=== PATIENT | male | born 1985 | race Caucasian/White ===

== ENCOUNTER 2017-08-04 19:10 | Emergency (ER) | payer SELFPAY ==
[~2017-08-04] VITALS: Ht 180.3 cm; Wt 81.7 kg
[~2017-08-04 19:10] MED LIST: ALBU90OI61; Atarax10 MG GT; Ativan0.5 MG PO; CALCIUM 500 +1 EAC2 PO; ESCI10 PO; FLUO10 PO; HYDACE5 PO; LISI5 PO; Omeprazole20 M1; Omeprazole20 M1 PO; Zantac150 MG PO
[2017-08-04] MEDS ORDERED: Bactrim Ds Tab1 EACH PO (21:37)
[2017-08-04] MEDS ORDERED: CEPH500 PO (21:37)
[2018-03-03] MEDS ORDERED: METO50ER PO (09:22)
[2018-04-14] MEDS ORDERED: Omeprazole20 M1 PO (12:51)
== END 2017-08-04 21:52 | disposition home or self-care (01) ==
LOC: ER 19:10
DX: L03.011 Cellulitis of right finger (principal); F41.9 Anxiety disorder, unspecified; F17.200 Nicotine dependence, unspecified, uncomplicated; Z88.0 Allergy status to penicillin; Z79.899 Other long term (current) drug therapy
CPT/HCPCS: 10061; 99283

== ENCOUNTER 2018-01-06 14:17 | Emergency (ER) | payer SELFPAY ==
[~2018-01-06] VITALS: Ht 180.3 cm; Wt 78.9 kg
[~2018-01-06 14:17] MED LIST changes: +Bactrim Ds Tab1 EACH PO; +CEPH500 PO
[2018-01-06 15:57] LABS: BASOPHILS ABSOLUTE AUTO 0.03 K/mm3 (0.00-0.23); BASOPHILS PERCENT AUTO 1 % (0-2); EOSINOPHILS ABSOLUTE AUTO 0.02 K/mm3 (0.00-0.68); EOSINOPHILS PERCENT AUTO 0 % (0-6); Hematocrit 38.9 % (37.0-53.0); Hemoglobin 13.1 g/dL (13.5-17.5); IMMATURE GRAN ABSOLUTE AUTO 0.01 K/mm3 (0.00-0.10); IMMATURE GRAN PERCENT AUTO 0 % (0-1); LYMPHOCYTES ABSOLUTE AUTO 1.11 K/mm3 (0.84-5.20); LYMPHOCYTES PERCENT AUTO 20 % (21-46); MONOCYTES ABSOLUTE AUTO 0.74 K/mm3 (0.16-1.47); MONOCYTES PERCENT AUTO 13 % (4-13); Mean Corpuscular HGB 32.6 pg (26.0-34.0); Mean Corpuscular HGB Conc 33.7 g/dL (31.5-36.5); Mean Corpuscular Volume 97 fL (80-100); Mean Platelet Volume 10.6 fL (9.1-12.4); NEUTROPHILS ABSOLUTE AUTO 3.64 K/mm3 (1.96-9.15); NEUTROPHILS PERCENT AUTO 66 % (41-73); Platelet Count 119 K/mm3 (150-400); RDW Coefficient Variation 13.8 % (11.7-14.2); RDW Standard Deviation 49.5 fL (35.1-46.3); Red Blood Cell Count 4.02 M/mm3 (4.30-5.90); White Blood Cell Count 5.55 K/mm3 (4.00-11.30)
[2018-01-06 16:13] LABS: Alanine Aminotransfer (ALT/SGP 98 U/L (12-78); Albumin, Blood 4.1 g/dL (3.4-5.0); Albumin/Globulin Ratio 1.3 (0.8-1.8); Alk Phos 77 U/L (50-136); Anion Gap 10 mmol/L (6-16); Aspartate Aminotrans (AST/SGOT 199 U/L (12-37); Bilirubin, Total 0.8 mg/dL (0.1-1.0); Blood Urea Nitrogen 16 mg/dL (8-24); Bun/Creatinine Ratio 20.9 (12.0-20.0); CO2, Blood 28 mmol/L (21-32); Calcium, Blood 8.6 mg/dL (8.5-10.1); Chloride, Blood 102 mmol/L (98-108); Creatinine, Blood 0.77 mg/dL (0.60-1.20); Ethanol (Alcohol), Blood, Med <3 mg/dL; Globulin, Blood 3.1 g/dL (2.2-4.0); Glomerular Filtration Rate >60 (60-); Glucose, Blood 77 mg/dL (70-99); Magnesium, Blood 1.4 mg/dL (1.6-2.4); Sodium, Blood 140 mmol/L (136-145); Total Protein, Blood 7.2 g/dL (6.4-8.2)
[2018-01-06] MEDS ORDERED: K-Dur 20 meq T20 MEQ PO (16:52)
[2018-01-06] MEDS ORDERED: MAGOXI400 PO (16:52)
== END 2018-01-06 19:04 | disposition home or self-care (01) ==
LOC: ER 14:17
PROVIDERS: Emergency Medicine
DX: F10.239 Alcohol dependence with withdrawal, unspecified (principal); E87.6 Hypokalemia; E83.42 Hypomagnesemia; Y90.0 Blood alcohol level of less than 20 mg/100 ml; Z88.0 Allergy status to penicillin; Z79.899 Other long term (current) drug therapy; Z79.2 Long term (current) use of antibiotics; F41.9 Anxiety disorder, unspecified; I10 Essential (primary) hypertension; F17.210 Nicotine dependence, cigarettes, uncomplicated
CPT/HCPCS: 36415; 80053; 83690; 83735; 85025; 96365; 96366; 96367; 96375; 99283; G0480; J3411; J3475; J3490; J7120

== ENCOUNTER 2018-03-03 08:47 | Emergency (ER) | payer MEDICAID ==
[~2018-03-03] VITALS: Ht 180.3 cm; Wt 79.4 kg
[~2018-03-03 08:47] MED LIST changes: +K-Dur 20 meq T20 MEQ PO; +MAGOXI400 PO
[2018-03-03] MEDS ORDERED: METO25ER PO (09:22)
[2018-03-03] MEDS ORDERED: HYDPAM25 PO (09:23)
[2018-03-03 09:45] LABS: BASOPHILS ABSOLUTE AUTO 0.02 K/mm3 (0.00-0.23); BASOPHILS PERCENT AUTO 0 % (0-2); EOSINOPHILS ABSOLUTE AUTO 0.01 K/mm3 (0.00-0.68); EOSINOPHILS PERCENT AUTO 0 % (0-6); Hematocrit 42.4 % (37.0-53.0); Hemoglobin 14.5 g/dL (13.5-17.5); IMMATURE GRAN ABSOLUTE AUTO 0.01 K/mm3 (0.00-0.10); IMMATURE GRAN PERCENT AUTO 0 % (0-1); LYMPHOCYTES ABSOLUTE AUTO 2.13 K/mm3 (0.84-5.20); LYMPHOCYTES PERCENT AUTO 23 % (21-46); MONOCYTES ABSOLUTE AUTO 0.51 K/mm3 (0.16-1.47); MONOCYTES PERCENT AUTO 5 % (4-13); Mean Corpuscular HGB 31.3 pg (26.0-34.0); Mean Corpuscular HGB Conc 34.2 g/dL (31.5-36.5); Mean Corpuscular Volume 92 fL (80-100); Mean Platelet Volume 9.9 fL (9.1-12.4); NEUTROPHILS ABSOLUTE AUTO 6.71 K/mm3 (1.96-9.15); NEUTROPHILS PERCENT AUTO 72 % (41-73); Platelet Count 212 K/mm3 (150-400); RDW Coefficient Variation 14.6 % (11.7-14.2); Red Blood Cell Count 4.63 M/mm3 (4.30-5.90); White Blood Cell Count 9.39 K/mm3 (4.00-11.30)
[2018-03-03 10:00] LABS: Troponin I <0.015 ng/mL (0.000-0.040)
[2018-03-03 10:01] LABS: Alanine Aminotransfer (ALT/SGP 19 U/L (12-78); Albumin/Globulin Ratio 1.2 (0.8-1.8); Alk Phos 69 U/L (50-136); Anion Gap 9 mmol/L (6-16); Aspartate Aminotrans (AST/SGOT 55 U/L (12-37); Bilirubin, Total 0.7 mg/dL (0.1-1.0); Blood Urea Nitrogen 12 mg/dL (8-24); Bun/Creatinine Ratio 17.9 (12.0-20.0); CO2, Blood 25 mmol/L (21-32); Chloride, Blood 106 mmol/L (98-108); Creatinine, Blood 0.67 mg/dL (0.60-1.20); Globulin, Blood 3.4 g/dL (2.2-4.0); Glomerular Filtration Rate >60 (60-); Glucose, Blood 99 mg/dL (70-99); Potassium, Blood 3.8 mmol/L (3.5-5.5); Sodium, Blood 140 mmol/L (136-145); Total Protein, Blood 7.4 g/dL (6.4-8.2)
== END 2018-03-03 12:09 | disposition home or self-care (01) ==
LOC: ER 08:47
PROVIDERS: Emergency Medicine
DX: R07.89 Other chest pain (principal); R00.2 Palpitations; F41.9 Anxiety disorder, unspecified; F17.210 Nicotine dependence, cigarettes, uncomplicated; I45.6 Pre-excitation syndrome; Z88.0 Allergy status to penicillin; Z79.899 Other long term (current) drug therapy; I10 Essential (primary) hypertension
CPT/HCPCS: 36415; 71046; 80053; 83880; 84484; 85025; 93005; 93010; 99285-25

== ENCOUNTER 2018-04-15 07:41 | Day surgery (SDC) | payer OTHER ==
[~2018-04-15] VITALS: Ht 180.3 cm; Wt 79.0 kg
[~2018-04-15 07:41] MED LIST changes: +HYDPAM25 PO; +METO50ER PO
[2018-04-15] MEDS ORDERED: LISI5 (08:12)
== END 2018-04-15 14:25 | disposition home or self-care (01) ==
LOC: MHTC 07:41
DX: I47.1 Supraventricular tachycardia (principal); R06.00 Dyspnea, unspecified; I25.41 Coronary artery aneurysm; I11.0 Hypertensive heart disease with heart failure; I50.9 Heart failure, unspecified; J45.909 Unspecified asthma, uncomplicated; F17.210 Nicotine dependence, cigarettes, uncomplicated; Z82.49 Family history of ischemic heart disease and other diseases of the circulatory system
CPT/HCPCS: 93460; 99152; C1769; C1894; J1644; J2250; J2405; J3010; J7030; J7040; Q9967

== ENCOUNTER 2018-07-11 10:36 | Emergency (ER) | payer OTHER ==
[~2018-07-11] VITALS: Ht 180.3 cm; Wt 88.5 kg
[~2018-07-11 10:36] MED LIST changes: -HYDPAM25 PO; +HYDPAM50 PO; +Prinivil10 MG PO
[2018-07-11 11:29] LABS: BASOPHILS ABSOLUTE AUTO 0.04 K/mm3 (0.00-0.23); BASOPHILS PERCENT AUTO 1 % (0-2); EOSINOPHILS ABSOLUTE AUTO 0.06 K/mm3 (0.00-0.68); EOSINOPHILS PERCENT AUTO 1 % (0-6); Hematocrit 32.9 % (37.0-53.0); Hemoglobin 10.4 g/dL (13.5-17.5); IMMATURE GRAN ABSOLUTE AUTO 0.03 K/mm3 (0.00-0.10); IMMATURE GRAN PERCENT AUTO 1 % (0-1); LYMPHOCYTES ABSOLUTE AUTO 1.98 K/mm3 (0.84-5.20); LYMPHOCYTES PERCENT AUTO 33 % (21-46); MONOCYTES ABSOLUTE AUTO 0.73 K/mm3 (0.16-1.47); MONOCYTES PERCENT AUTO 12 % (4-13); Mean Corpuscular HGB 32.8 pg (26.0-34.0); Mean Corpuscular HGB Conc 31.6 g/dL (31.5-36.5); Mean Corpuscular Volume 104 fL (80-100); Mean Platelet Volume 10.1 fL (9.1-12.4); NEUTROPHILS ABSOLUTE AUTO 3.25 K/mm3 (1.96-9.15); NEUTROPHILS PERCENT AUTO 53 % (41-73); Platelet Count 294 K/mm3 (150-400); RDW Coefficient Variation 16.8 % (11.7-14.2); RDW Standard Deviation 63.8 fL (35.1-46.3); Red Blood Cell Count 3.17 M/mm3 (4.30-5.90); White Blood Cell Count 6.09 K/mm3 (4.00-11.30)
[2018-07-11 11:44] LABS: Alanine Aminotransfer (ALT/SGP 73 U/L (12-78); Albumin, Blood 3.2 g/dL (3.4-5.0); Albumin/Globulin Ratio 0.9 (0.8-1.8); Alk Phos 59 U/L (50-136); Anion Gap 8 mmol/L (6-16); Aspartate Aminotrans (AST/SGOT 148 U/L (12-37); Bilirubin, Total 0.3 mg/dL (0.1-1.0); Blood Urea Nitrogen 9 mg/dL (8-24); Bun/Creatinine Ratio 14.2 (12.0-20.0); CO2, Blood 27 mmol/L (21-32); Calcium, Blood 6.8 mg/dL (8.5-10.1); Chloride, Blood 108 mmol/L (98-108); Creatinine, Blood 0.63 mg/dL (0.60-1.20); Globulin, Blood 3.4 g/dL (2.2-4.0); Glomerular Filtration Rate >60 (60-); Glucose, Blood 92 mg/dL (70-99); Potassium, Blood 3.2 mmol/L (3.5-5.5); Sodium, Blood 143 mmol/L (136-145); Total Protein, Blood 6.6 g/dL (6.4-8.2); Troponin I <0.015 ng/mL (0.000-0.040)
[2018-07-11] MEDS ORDERED: PROM25 PO (12:20)
[2018-07-11] MEDS ORDERED: DIPATRL (12:21)
== END 2018-07-11 13:56 | disposition home or self-care (01) ==
LOC: ER 10:36
PROVIDERS: Physician Assistant
DX: I42.6 Alcoholic cardiomyopathy (principal); G24.9 Dystonia, unspecified; F41.9 Anxiety disorder, unspecified; F17.200 Nicotine dependence, unspecified, uncomplicated; Z88.2 Allergy status to sulfonamides; Z91.09 Other allergy status, other than to drugs and biological substances; Z79.899 Other long term (current) drug therapy
CPT/HCPCS: 36415; 71046; 80053; 83880; 84484; 85025; 93005; 93010; 99285-25

== ENCOUNTER 2018-08-21 14:34 | Inpatient (IN) | payer OTHER ==
[~2018-08-21] VITALS: Ht 180.3 cm; Wt 89.0 kg
[~2018-08-21 14:34] MED LIST changes: +DIPATRL; +PROM25 PO
[2018-08-21 15:15] LABS: Calcium, Ionized (POC) 0.97 mmol/L (1.10-1.46); Chloride (POC) 99 mmol/L (98-108); Creatinine (POC) 0.9 mg/dL (0.8-1.3); Glucose (ISTAT POC) 94 mg/dL (70-99); Hemoglobin (POC) 17.3 g/dL (13.5-17.5); Potassium (POC) 3.8 mmol/L (3.5-5.5); Sodium (POC) 138 mmol/L (135-148); Total CO2 (POC) 22 mmol/L (21-32)
[2018-08-21 15:16] LABS: BASOPHILS ABSOLUTE AUTO 0.03 K/mm3 (0.00-0.23); BASOPHILS PERCENT AUTO 0 % (0-2); EOSINOPHILS PERCENT AUTO 0 % (0-6); Hematocrit 47.1 % (37.0-53.0); Hemoglobin 15.9 g/dL (13.5-17.5); IMMATURE GRAN ABSOLUTE AUTO 0.06 K/mm3 (0.00-0.10); IMMATURE GRAN PERCENT AUTO 0 % (0-1); LYMPHOCYTES ABSOLUTE AUTO 2.16 K/mm3 (0.84-5.20); LYMPHOCYTES PERCENT AUTO 16 % (21-46); MONOCYTES ABSOLUTE AUTO 0.59 K/mm3 (0.16-1.47); MONOCYTES PERCENT AUTO 4 % (4-13); Mean Corpuscular HGB 31.6 pg (26.0-34.0); Mean Corpuscular HGB Conc 33.8 g/dL (31.5-36.5); Mean Corpuscular Volume 94 fL (80-100); Mean Platelet Volume 10.2 fL (9.1-12.4); NEUTROPHILS ABSOLUTE AUTO 10.53 K/mm3 (1.96-9.15); NEUTROPHILS PERCENT AUTO 79 % (41-73); Platelet Count 328 K/mm3 (150-400); RDW Coefficient Variation 13.5 % (11.7-14.2); RDW Standard Deviation 46.6 fL (35.1-46.3); Red Blood Cell Count 5.03 M/mm3 (4.30-5.90); White Blood Cell Count 13.37 K/mm3 (4.00-11.30)
[2018-08-21 15:31] LABS: Alanine Aminotransfer (ALT/SGP 40 U/L (12-78); Albumin, Blood 4.6 g/dL (3.4-5.0); Albumin/Globulin Ratio 1.2 (0.8-1.8); Alk Phos 82 U/L (50-136); Anion Gap 21 mmol/L (6-16); Aspartate Aminotrans (AST/SGOT 66 U/L (12-37); Bilirubin, Total 0.5 mg/dL (0.1-1.0); Blood Urea Nitrogen 15 mg/dL (8-24); Bun/Creatinine Ratio 16.9 (12.0-20.0); CO2, Blood 20 mmol/L (21-32); Calcium, Blood 9.1 mg/dL (8.5-10.1); Chloride, Blood 98 mmol/L (98-108); Creatinine, Blood 0.89 mg/dL (0.60-1.20); Globulin, Blood 3.7 g/dL (2.2-4.0); Glomerular Filtration Rate >60 (60-); Glucose, Blood 90 mg/dL (70-99); Magnesium, Blood 1.5 mg/dL (1.6-2.4); Potassium, Blood 3.9 mmol/L (3.5-5.5); Sodium, Blood 139 mmol/L (136-145); Total Protein, Blood 8.3 g/dL (6.4-8.2); Troponin I <0.015 ng/mL (0.000-0.040)
[2018-08-21] MEDS ORDERED: POTASSIUM99 MG PO (16:00)
--- NOTE | 2018-08-21 19:12 | NUR ---
PT NEW ADMIT TO ICU. HR IN 130S-140S UPON ARRIVAL. DENIES CHEST PAIN, STATES HE FEELS NAUSEATED. VISIBLE TREMORS NOTED. PHARMACY ADVISED PROCAINAMIDE AT 20MLS/HR. OCTREOTIDE GTT RUNNING AT Y SITE WITH IT. LACTATED RINGERS RUNNING AT OPPOSITE IV SITE. PT'S MOTHER AT BEDSIDE. PT GIVEN ICE CHIPS PER ORDERS AND REQUEST.
--- NOTE | 2018-08-21 19:41 | NUR ---
REVIEWED CIWA WITH MARIANNE DESAI DURING REPORT. REVIEWED ORDERS AND MEDS STILL NEEDED WITH NIGHT RN. LANDSCAPE ARCHITECT AND PLANNER STARTED NEW IV SITE WHILE NIGHT AND DAY NURSES IN REPORT
[2018-08-21 20:44] LABS: Source, Urine Clean Catch
[2018-08-21 20:48] LABS: Bilirubin, Urine Neg (Neg); Blood, Urine 1+ (Neg); Glucose Qualitative, Urine Neg (Neg); Ketones, Urine 4+ (Neg); Leukocyte Esterase, Urine Neg (Neg); Nitrite, Urine Neg (Neg); Protein, Urine 3+ (Neg); Specific Gravity, Urine 1.025 (1.003-1.022); Urobilinogen, Urine NORM (Normal)
[2018-08-21 20:58] LABS: Appearance, Urine Clear (Clear); Color, Urine Yellow (P-Yellow)
[2018-08-21 20:59] LABS: Amorphous Light ({null, 0-Heavy}); Bacteria Not Seen /hpf; Hyaline Casts 0-2 /lpf (0-2); Mucus Light ({null, 0-Heavy}); Red Blood Cells, Urine Rare /hpf (0-2); Squamous Epithelial Cells Not Seen /hpf (Few); White Blood Cells, Urine Not Seen /hpf (0-5)
[2018-08-21 21:04] LABS: U Amphetamine Screen DETECTED; U Barbituate Screen Not Detected; U Benzodiazapine Screen Not Detected; U Buprenorphine Screen Not Detected; U Cannabinoids Screen Not Detected; U Cocaine Screen Not Detected; U Methadone Screen Not Detected; U Methamphetamine Screen DETECTED; U Opiates Screen Not Detected; U Oxycodone Screen Not Detected; U Phencyclidine Screen Not Detected; U Propoxyphene Screen Not Detected
[2018-08-21 22:02] LABS: Hematocrit 41.1 % (37.0-53.0); Hemoglobin 13.5 g/dL (13.5-17.5)
--- NOTE | 2018-08-21 23:13 | NUR ---
ASSUMED CARE OF PT AT 1900. PT ALERT AND SITTING UP IN BED COMPLAINING OF ABDOMINAL PAIN AND NAUSEA. UPPER/LOWER LEFT QUADRANT TENDER UPON PALPATION. PT HAS NOTICEABLE TREMORS, FIRST THOUGHT TO BE RELATED TO ALCOHOL W/D BUT PT STATES THIS IS BASELINE FOR HIM AND GETS WORSE WHEN HE ISN'T FEELING WELL. PT STATES THAT HE USED TO DRINK 1/5TH OF VODKA BUT HAS BEEN SOBER SINCE May, MOTHER CONFIRMS THIS. PT STATES THAT SATURDAY WAS THE FIRST TIME HE HAS DRANK SINCE THAT TIME AND HE DRANK 6 SHOTS OF VODKA. CIWA PROTOCOL WAS ORDERED. ATIVAN DC'D DUE TO PT'S REPORT OF ADVERSE REACTION (HALLUCINATIONS, NEW ONSET TICS). FOR THE PAST 2 DAYS PT HAS HAD NAUSEA AND VOMITING AND TODAY HE STATES HE STARTED VOMITING COFFEE GROUNDS AND HAS HAD ABDOMINAL PAIN. 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 PT STATES THAT HE IS UNABLE TO HAVE ADDITIONAL INTERVENTION UNTIL HE STOPS SMOKING. PT WAS GIVEN ADENOSINE AND PLACED ON A CARDIZEM DRIP. PER DR ALBERTS PT PLACED ON PROCAINIMIDE AND BROUGHT TO ICU. SEE FULL SHIFT ASSESSMENT.
[2018-08-22 03:34] LABS: BASOPHILS ABSOLUTE AUTO 0.03 K/mm3 (0.00-0.23); BASOPHILS PERCENT AUTO 0 % (0-2); EOSINOPHILS PERCENT AUTO 0 % (0-6); Hematocrit 38.8 % (37.0-53.0); Hemoglobin 12.5 g/dL (13.5-17.5); IMMATURE GRAN ABSOLUTE AUTO 0.01 K/mm3 (0.00-0.10); IMMATURE GRAN PERCENT AUTO 0 % (0-1); LYMPHOCYTES ABSOLUTE AUTO 2.61 K/mm3 (0.84-5.20); LYMPHOCYTES PERCENT AUTO 29 % (21-46); MONOCYTES ABSOLUTE AUTO 0.91 K/mm3 (0.16-1.47); MONOCYTES PERCENT AUTO 10 % (4-13); Mean Corpuscular HGB 31.6 pg (26.0-34.0); Mean Corpuscular HGB Conc 32.2 g/dL (31.5-36.5); Mean Platelet Volume 10.1 fL (9.1-12.4); NEUTROPHILS ABSOLUTE AUTO 5.33 K/mm3 (1.96-9.15); NEUTROPHILS PERCENT AUTO 60 % (41-73); Platelet Count 229 K/mm3 (150-400); RDW Coefficient Variation 13.5 % (11.7-14.2); RDW Standard Deviation 48.9 fL (35.1-46.3); Red Blood Cell Count 3.96 M/mm3 (4.30-5.90); White Blood Cell Count 8.89 K/mm3 (4.00-11.30)
[2018-08-22 03:35] LABS: Mean Corpuscular Volume 98 fL (80-100)
[2018-08-22 03:48] LABS: Anion Gap 12 mmol/L (6-16); Blood Urea Nitrogen 11 mg/dL (8-24); Bun/Creatinine Ratio 12.4 (12.0-20.0); CO2, Blood 25 mmol/L (21-32); Calcium, Blood 8.3 mg/dL (8.5-10.1); Chloride, Blood 100 mmol/L (98-108); Creatinine, Blood 0.89 mg/dL (0.60-1.20); Glomerular Filtration Rate >60 (60-); Glucose, Blood 94 mg/dL (70-99); Potassium, Blood 4.7 mmol/L (3.5-5.5); Sodium, Blood 137 mmol/L (136-145)
--- NOTE | 2018-08-22 05:54 | NUR ---
SHIFT SUMMARY PROCAINAMIDE PLACED ON STANDBY AT 0500. PT'S HR HAS CONSISTENTLY REMAINED BETWEEN 80-100. PT CURRENTLY IN NSR. PT HAS BEEN MEDICATED FOR LUQ/LLQ PAIN X2. PT DENIES PAIN CURRENTLY. PT HAD NAUSEA UPON ADMISSION BUT NO FURTHER BOUTS OF NAUSEA AND NO VOMITING. PT HAS TOLERATED CLEAR LIQUID DIET. PT DENIES USE OF METH/AMPH DESPITE POS TOX SCREEN. PT SLEPT THROUGHOUT NIGHT AND HAS NOT ATTEMPTED TO AMBULATE. USING URINAL WITH 250 DARK YELLOW URINARY OUTPUT. WILL REPORT TO DAYSHIFT NURSE.
--- NOTE | 2018-08-22 08:01 | NUR ---
0730-ASSUMED CARE OF PT. PT IS ALERT AND ORIENTED. DENIES PAIN AT THIS TIME. PT IS ON NSR. PT HAS PROTONIX AND SANDOSTATIN DRIP. EXPLAINED TO PATIENT AND MOTHER REGARDING ALCOHOL WITHDRAWAL, GI BLEED, INFO REGARDING ENDOSCOPY.
--- NOTE | 2018-08-22 12:19 | NUR ---
INOT ICU 7 TO PRE OP PATIENT. VSS
--- NOTE | 2018-08-22 12:30 | NUR ---
DR. MOTA AT BEDSIDE. GI TEAM AT [facility] PREPPING PATIENT FOR EGD.
--- NOTE | 2018-08-22 12:35 | NUR ---
08/22/18 1235 Ian Maza Bite Block Placed3-LEAD EKG REVIEWED WITH PHYSICIAN PRIOR TO START OF PROCEDURE.History, Chart, Medications and Allergies reviewed before start of procedure.MONITOR INTACT WITH CONTINUOUS PULSE OXIMETRY AND INTERMITTENT BP.O2 VIA N/C INTACT THROUGHOUT SEDATION/PROCEDURE. PATIENT DETERMINED TO BE ASA APPROPRIATE FOR PROPOFOL SEDATION PRIOR TO START OF PROCEDURE BY
--- NOTE | 2018-08-22 13:26 | NUR ---
PT IS SLEEPING SOUNDLY AT THIS TIME. EGD WAS DONE. OPENS EYES TO VOICE. FOLLOWING COMMANDS. DISCONTINUED PROTONIX AND SANDOSTATIN DRIP ORDERED BY DR. MOTA. DR. NEVAREZ SAT. WAS NOTIFIED REGARDING EGD AND PT' CONDITION. CARE STATUS WAS CHANGED TO MEDICAL WITH TELEMETRY. PT IS KEPT NPO FOR ABDOMINAL ULTRASOUND.
--- NOTE | 2018-08-22 15:15 | NUR ---
pt will be transferred to room 362. report given to MARIANNE Rivera in medical floor.
--- NOTE | 2018-08-22 15:26 | NUR ---
PT TRANSFERED TO ROOM 362 AT THIS TIME.
--- NOTE | 2018-08-22 16:14 | NUR ---
PT TRANSFERED PT TRANSFERED AT 1530. PT IN STABLE CONDITION. TELE APPLIED. SINUS NIRMAL WITH PACS AT 48. OT ORIENTED TO UNIT. CALL LIGHT IN REACH. DENIES PAIN MED NEEDS AT THIS TIME.
--- NOTE | 2018-08-22 17:52 | NUR ---
SHIFT SUMMARY PT IN STABLE CONDITION. PT HAS SLIGHT TEMP OF 99.3 & ELEVATED BP OF 160/88. METOPEROL SCHEDULED FOR THIS EVENING. RATE AT SINUS NIRMAL WITH PACS AT 48BPM. PT HAS MAINTAINED IN THE 40-50S FOR HEARTRATE THIS STAY. WILL CONTINUE TO MONITOR. OTHER VITALS STABLE. FAMILY AT BEDSIDE & PT UP ON BEDSIDE EATING DINNER. PT DENIES NAUSEA AND DENIES NEEDS FOR PAIN MEDICATION. PT STATES HE HAS NOT HAD A BM SINCE BEING ADMITTED AND HAS NOT OBSERVED BLEEDING. WILL CONTINUE TO MONITOR UNTIL TURNOVER IS COMPLETE.
--- NOTE | 2018-08-22 18:43 | NUR ---
PT BECAME NAUSEATED. PT BECAME NAUSEATED AFTER EATING SOME DINNER. PT STATED HE DRY HEAVED AND THEN NEEDED TO USE THE RESTROOM FOR A BM. PT STATED BM WAS LIGHT BROWN AND FORMED. NO VISIBLE BLOOD IN STOOL. PT ALSO MEDICATED FOR PAIN AT THIS TIME.
[2018-08-23 05:26] LABS: BASOPHILS ABSOLUTE AUTO 0.02 K/mm3 (0.00-0.23); BASOPHILS PERCENT AUTO 0 % (0-2); EOSINOPHILS ABSOLUTE AUTO 0.02 K/mm3 (0.00-0.68); EOSINOPHILS PERCENT AUTO 0 % (0-6); Hematocrit 39.1 % (37.0-53.0); Hemoglobin 12.7 g/dL (13.5-17.5); IMMATURE GRAN ABSOLUTE AUTO 0.02 K/mm3 (0.00-0.10); IMMATURE GRAN PERCENT AUTO 0 % (0-1); LYMPHOCYTES ABSOLUTE AUTO 2.34 K/mm3 (0.84-5.20); LYMPHOCYTES PERCENT AUTO 37 % (21-46); MONOCYTES ABSOLUTE AUTO 0.47 K/mm3 (0.16-1.47); MONOCYTES PERCENT AUTO 7 % (4-13); Mean Corpuscular HGB 31.7 pg (26.0-34.0); Mean Corpuscular HGB Conc 32.5 g/dL (31.5-36.5); Mean Corpuscular Volume 98 fL (80-100); Mean Platelet Volume 10.6 fL (9.1-12.4); NEUTROPHILS ABSOLUTE AUTO 3.54 K/mm3 (1.96-9.15); NEUTROPHILS PERCENT AUTO 55 % (41-73); Platelet Count 167 K/mm3 (150-400); RDW Coefficient Variation 13.2 % (11.7-14.2); Red Blood Cell Count 4.01 M/mm3 (4.30-5.90); White Blood Cell Count 6.41 K/mm3 (4.00-11.30)
[2018-08-23 05:54] LABS: Albumin, Blood 3.4 g/dL (3.4-5.0); Anion Gap 9 mmol/L (6-16); Blood Urea Nitrogen 5 mg/dL (8-24); Bun/Creatinine Ratio 5.8 (12.0-20.0); CO2, Blood 29 mmol/L (21-32); Chloride, Blood 101 mmol/L (98-108); Creatinine, Blood 0.86 mg/dL (0.60-1.20); Glomerular Filtration Rate >60 (60-); Glucose, Blood 77 mg/dL (70-99); Phosphorus, Blood 2.3 mg/dL (2.5-4.9); Potassium, Blood 3.6 mmol/L (3.5-5.5); Sodium, Blood 139 mmol/L (136-145)
--- NOTE | 2018-08-23 07:32 | NUR ---
a+o, denies pain, call light in reach, able ot make needs known, family at bedside, no bloody stool noted, LR infusing with no s/sx of infiltration, room air, walking rounds completed with day staff
[2018-08-23] MEDS ORDERED: Carafate1 GM/10 ML PO (13:37)
--- NOTE | 2018-08-23 15:04 | NUR ---
PATIENT DISCHARGE: PATIENT DISCHARGED TO HOME THIS SHIFT. MEDICATION RECONCILIATION COMPLETED; MED LIST FAXED TO [facility]. DISCHARGE EDUCATION COMPLETED WITH PATIENT AND FAMILY. PATIENT INDEPENDENT IN ROOM; PATIENT REFUSED WHEELCHAIR TRANSPORT TO EXIT. PATIENT DEPARTED MEDICAL FLOOR AT 1359. PATIENT DEPARTED [facility] VIA PRIVATE AUTO.
[2018-08-25 09:18] LABS: HBSAG SCREEN Negative (Negative); HEP B CORE AB, TOT Negative (Negative); HEP C VIRUS AB <0.1 (0.0-0.9)
== END 2018-08-23 14:06 | disposition home or self-care (01) | DRG 380 ==
LOC: ER 14:34 → ICUE 18:00 → ICUW 18:00 → ICUE 18:20 → MEDS 08-22 15:51
PROVIDERS: Emergency Medicine; Internal Medicine Gastroenterology; ADMIT Family Medicine
PROC: 0DJ08ZZ Inspection of Upper Intestinal Tract, Via Natural or Artificial Opening Endoscopic (ICD-10-PCS; principal; 2018-08-22 12:30)
DX: K22.11 Ulcer of esophagus with bleeding (principal); G92 Toxic encephalopathy; E87.2 Acidosis; D62 Acute posthemorrhagic anemia; I47.1 Supraventricular tachycardia; I45.6 Pre-excitation syndrome; K92.0 Hematemesis; F41.9 Anxiety disorder, unspecified; F17.210 Nicotine dependence, cigarettes, uncomplicated; K21.9 Gastro-esophageal reflux disease without esophagitis; E83.42 Hypomagnesemia; I10 Essential (primary) hypertension; K70.10 Alcoholic hepatitis without ascites; F15.10 Other stimulant abuse, uncomplicated; F10.10 Alcohol abuse, uncomplicated; K44.9 Diaphragmatic hernia without obstruction or gangrene
CPT/HCPCS: 36415; 71045; 76705; 80047; 80048; 80053; 80069; 81001; 83605; 83735; 84484; 85014; 85018; 85025; 86317; 86704; 86708; 86803; 87040; 87340; 93005; 93010; 96365; 96367; 96375; 99285-25; C9113; G0480; J0153; J0696; J1430; J2250; J2405; J2690; J2765; J3010; J3475; J7030; J7050; J7120

== ENCOUNTER 2018-09-26 13:16 | Emergency (ER) | payer OTHER ==
[~2018-09-26] VITALS: Ht 172.7 cm; Wt 90.7 kg
[~2018-09-26 13:16] MED LIST changes: +POTASSIUM99 MG PO; +SUCR1
[2018-09-26 13:39] LABS: BASOPHILS ABSOLUTE AUTO 0.02 K/mm3 (0.00-0.23); BASOPHILS PERCENT AUTO 0 % (0-2); EOSINOPHILS ABSOLUTE AUTO 0.02 K/mm3 (0.00-0.68); EOSINOPHILS PERCENT AUTO 0 % (0-6); Hematocrit 47.4 % (37.0-53.0); Hemoglobin 16.4 g/dL (13.5-17.5); IMMATURE GRAN ABSOLUTE AUTO 0.04 K/mm3 (0.00-0.10); IMMATURE GRAN PERCENT AUTO 0 % (0-1); LYMPHOCYTES ABSOLUTE AUTO 1.49 K/mm3 (0.84-5.20); LYMPHOCYTES PERCENT AUTO 14 % (21-46); MONOCYTES ABSOLUTE AUTO 0.48 K/mm3 (0.16-1.47); MONOCYTES PERCENT AUTO 4 % (4-13); Mean Corpuscular HGB 31.5 pg (26.0-34.0); Mean Corpuscular HGB Conc 34.6 g/dL (31.5-36.5); Mean Corpuscular Volume 91 fL (80-100); Mean Platelet Volume 9.6 fL (9.1-12.4); NEUTROPHILS ABSOLUTE AUTO 8.81 K/mm3 (1.96-9.15); Platelet Count 218 K/mm3 (150-400); RDW Coefficient Variation 13.2 % (11.7-14.2); RDW Standard Deviation 43.8 fL (35.1-46.3); White Blood Cell Count 10.86 K/mm3 (4.00-11.30)
[2018-09-26 13:45] LABS: NEUTROPHILS PERCENT AUTO 8 % (41-73)
[2018-09-26 13:55] LABS: Alanine Aminotransfer (ALT/SGP 30 U/L (12-78); Albumin/Globulin Ratio 1.4 (0.8-1.8); Alk Phos 80 U/L (50-136); Anion Gap 26 mmol/L (6-16); Aspartate Aminotrans (AST/SGOT 55 U/L (12-37); Bilirubin, Total 0.5 mg/dL (0.1-1.0); Blood Urea Nitrogen 18 mg/dL (8-24); Bun/Creatinine Ratio 20.4 (12.0-20.0); CO2, Blood 16 mmol/L (21-32); Calcium, Blood 9.1 mg/dL (8.5-10.1); Chloride, Blood 97 mmol/L (98-108); Creatinine, Blood 0.88 mg/dL (0.60-1.20); Globulin, Blood 3.7 g/dL (2.2-4.0); Glomerular Filtration Rate >60 (60-); Glucose, Blood 116 mg/dL (70-99); Potassium, Blood 4.1 mmol/L (3.5-5.5); Sodium, Blood 139 mmol/L (136-145); Total Protein, Blood 8.7 g/dL (6.4-8.2)
[2018-09-26 14:42] LABS: Source, Urine Clean Catch
[2018-09-26 14:46] LABS: Appearance, Urine Clear (Clear); Bilirubin, Urine Neg (Neg); Blood, Urine 1+ (Neg); Color, Urine Yellow (P-Yellow); Glucose Qualitative, Urine Neg (Neg); Ketones, Urine 3+ (Neg); Leukocyte Esterase, Urine Neg (Neg); Nitrite, Urine Neg (Neg); Protein, Urine 3+ (Neg); Urobilinogen, Urine NORM (Normal)
[2018-09-26 14:58] LABS: Magnesium, Blood 1.3 mg/dL (1.6-2.4)
[2018-09-26 15:05] LABS: White Blood Cells, Urine Rare /hpf (0-5)
[2018-09-26 15:06] LABS: Amorphous Light (0-Heavy); Bacteria Not Seen /hpf; Mucus Mod (0-Heavy); Red Blood Cells, Urine 0-2 /hpf (0-2); Squamous Epithelial Cells Rare /hpf (Few)
[2018-09-26 16:20] LABS: Calcium, Ionized (POC) 0.92 mmol/L (1.10-1.46); Chloride (POC) 99 mmol/L (98-108); Creatinine (POC) 0.9 mg/dL (0.8-1.3); Glucose (ISTAT POC) 116 mg/dL (70-99); Potassium (POC) 4.4 mmol/L (3.5-5.5); Sodium (POC) 139 mmol/L (135-148); Total CO2 (POC) 28 mmol/L (21-32)
[2018-09-26] MEDS ORDERED: Norco 5-325 Ta1 EACH PO (16:45)
[2018-09-26] MEDS ORDERED: Zofran8 MG PO (16:45)
== END 2018-09-26 17:20 | disposition home or self-care (01) ==
LOC: ER 13:16
PROVIDERS: Emergency Medicine
DX: E86.0 Dehydration (principal); R11.10 Vomiting, unspecified; E87.2 Acidosis; Z88.8 Allergy status to other drugs, medicaments and biological substances; Z88.0 Allergy status to penicillin; Z79.899 Other long term (current) drug therapy; F41.9 Anxiety disorder, unspecified; F17.210 Nicotine dependence, cigarettes, uncomplicated
CPT/HCPCS: 36415; 80047; 80053; 81001; 83690; 83735; 85014; 85025; 93005; 93010; 96365; 96366; 96375; 99284-25; C9113; G0480; J0780; J1170; J2405; J3475; J7042; J7120

== ENCOUNTER → 2018-10-01 | Outpatient (CLI) | payer OTHER ==
[~2018-10-01] MED LIST changes: +Norco 5-325 Ta1 EACH PO; +Zofran8 MG PO
[2018-10-01 16:35] LABS: BASOPHILS ABSOLUTE AUTO 0.02 K/mm3 (0.00-0.23); BASOPHILS PERCENT AUTO 0 % (0-2); EOSINOPHILS ABSOLUTE AUTO 0.01 K/mm3 (0.00-0.68); EOSINOPHILS PERCENT AUTO 0 % (0-6); Hematocrit 40.6 % (37.0-53.0); Hemoglobin 13.9 g/dL (13.5-17.5); IMMATURE GRAN ABSOLUTE AUTO 0.02 K/mm3 (0.00-0.10); IMMATURE GRAN PERCENT AUTO 0 % (0-1); LYMPHOCYTES ABSOLUTE AUTO 0.75 K/mm3 (0.84-5.20); LYMPHOCYTES PERCENT AUTO 12 % (21-46); MONOCYTES ABSOLUTE AUTO 0.25 K/mm3 (0.16-1.47); MONOCYTES PERCENT AUTO 4 % (4-13); Mean Corpuscular HGB Conc 34.2 g/dL (31.5-36.5); Mean Corpuscular Volume 90 fL (80-100); Mean Platelet Volume 10.4 fL (9.1-12.4); NEUTROPHILS ABSOLUTE AUTO 5.37 K/mm3 (1.96-9.15); NEUTROPHILS PERCENT AUTO 84 % (41-73); Platelet Count 168 K/mm3 (150-400); RDW Coefficient Variation 13.2 % (11.7-14.2); Red Blood Cell Count 4.49 M/mm3 (4.30-5.90); White Blood Cell Count 6.42 K/mm3 (4.00-11.30)
== END | disposition home or self-care (01) ==
LOC: LAB EV 16:28 → LAB SHORT 16:28
PROVIDERS: Physician Assistant
DX: K92.2 Gastrointestinal hemorrhage, unspecified (principal)
CPT/HCPCS: 85025